=== PATIENT | female | born 1960 | race Caucasian/White ===

== ENCOUNTER 2018-03-19 16:16 | Inpatient (IN) | payer OTHER ==
[~2018-03-19] VITALS: Ht 152 cm; Wt 48.0 kg
--- NOTE | ~2018-03-19 | CON ---
[place], [place] REPORT OF CONSULTATION NAME: MARY MYERS UNIT #: [id number] ROOM: 407 DOCTOR: TREVON TORRES MD BIRTHDATE: [birth year] DOS: 03/20/2018 REASON FOR CONSULTATION: Palpitation and chest discomfort. HISTORY OF PRESENT ILLNESS: The patient is a 57-year-old woman who was seen on 03/20/2018 for evaluation of palpitations. She states that she has never had a history of heart disease or diabetes. She was known to have high blood pressure and was treated for this for several years until she found out that she had sleep apnea. She started using CPAP about 5 years ago, which states that her blood pressure normalized shortly after that. She was living in [place], but recently moved to the [facility] to help care for her aging mother. She states that since she has moved to the local area, she has had an uncomfortable awareness of her heartbeat. She states that it often beats quickly. She wears a Fitbit and states that her resting pulse can be about 90 and with even a little bit of activity can go up in the low 100s. She denies actual chest pain, but states that it is uncomfortable when she is aware of her heart. Yesterday, she was doing an intake evaluation at the local [facility] in [place]. She told the staff there that she was having palpitations and was sent to the emergency room for evaluation and admission. The patient denies any previous history of heart disease, heart murmur, rheumatic fever, scarlet fever, diabetes mellitus, heart attack or stroke. PAST HISTORY: Includes, 1. Hypertension, which was treated for 5 years. 2. Obstructive sleep apnea. The patient has been on CPAP for the last 5 years and notes that her blood pressure normalized after she began using CPAP. 3. Long-term tobacco abuse. The patient is in the process of quitting. She is not using any drugs to assist this. 4. History of hysterectomy. FAMILY HISTORY: Her father had a heart attack in his 60s and several other men in the family have had heart attacks in that age group. Mother is alive with hypertension and arrhythmias. MEDICATIONS: The patient states that her only prescription medication is trazodone 50 mg at bedtime. She has been on this for several years without any recent changes. She denies use of [id number] supplements, stimulants, decongestants, etc. ALLERGIES: She has no known drug allergies. REVIEW OF SYSTEMS: The patient denies diplopia or loss of vision. She denies lightheadedness or syncope. She denies any focal weakness. She denies fevers, chills, sweats or recent weight change. She denies orthopnea or PND. She denies nausea or vomiting. She denies any change in bowel or bladder habits. She denies any hemoptysis or hematemesis. She denies any blood in her stools or urine. She denies peripheral edema or skin rashes. She denies heat or cold [place], [place] REPORT OF CONSULTATION NAME: MARY MYERS UNIT #: [id number] ROOM: 407 DOCTOR: TREVON TORRES MD BIRTHDATE: [birth year] intolerance. She denies polyuria or polydipsia. The remainder of the review of systems is negative except as noted above. SOCIAL HISTORY: The patient recently moved to the local area from [place]. She is attempting to quit smoking. She does not consume any alcohol or illicit drugs and denies the use of diet pills, decongestant sinus medications, etc. PHYSICAL EXAMINATION: GENERAL: The patient is a slender white female who looks younger than her stated age. VITAL SIGNS: Pulse is 78 and regular, blood pressure is 112/63. She is afebrile. HEENT: Normocephalic, atraumatic. Extraocular muscles are intact. Sclerae are clear. Pupils are equal, round and react to light. The oral mucosa is moist. Tongue is midline. NECK: Supple. She has no jugular distention. Carotids are full. I heard no bruits. She had no neck or supraclavicular masses and no thyromegaly. LUNGS: Respirations are unlabored. Her chest is clear to auscultation and percussion. She has no presacral edema or chest wall tenderness. HEART: Has a regular rhythm. She has a soft fourth heart sound, but no third heart sound or murmur. The PMI is not displaced. There is no precordial heave, lift or thrill. ABDOMEN: Soft and normally active without masses, organomegaly or bruits. EXTREMITIES: Showed no clubbing, cyanosis or edema. Peripheral pulses are easily palpated in the feet. She has no cords or Homans sign. There are no scars or skin rashes obvious. I reviewed her electrocardiogram, which showed sinus rhythm at a rate of 73. The tracing was entirely normal. I also reviewed pvc monitor strips from the last 24 hours and they show normal findings without tachy or bradyarrhythmias or pauses. Chest x-ray showed a normal cardiac silhouette. There was no evidence for heart failure. LABORATORY DATA: Hemoglobin is 13, hematocrit 39.5. There is 6400 white cells and 236,000 platelets. INR is 0.9, sodium 142, potassium 3.9, chloride 106, CO2 27, BUN 19, creatinine 0.8. Sugar was 128, but prior to that was 95. Troponin was negative times 3. Total cholesterol 207, triglycerides 230, LDL 106, HDL 55. TSH 0.780. IMPRESSION: Increased cardiac awareness with possible tachycardia. PLAN: Thus far, the patient shows no signs of an acute coronary ischemic problem or significant arrhythmias in the hospital. She appears to be at low risk for cardiac events in the foreseeable future. I think therefore that the remainder of her evaluation can occur as an outpatient. I told her to make sure that she avoids excessive caffeine, and that she does not consume decongestant sinus medications, etc. Also, I encouraged her to remain adequately hydrated. I applauded her efforts to stop smoking. I would like her to have an [place], [place] REPORT OF CONSULTATION NAME: MARY MYERS UNIT #: [id number] ROOM: 407 DOCTOR: TREVON TORRES MD BIRTHDATE: [birth year] echocardiogram as an outpatient as well as a 48-hour Holter monitor as an outpatient. If these are normal, then no other cardiac workup would be indicated at this time. I thank the hospitalist physicians for asking our advice regarding her care. TREVON TORRES MD CM:CONSTR:REPORT OF CONSULTATION [id number] 03/25/18 0800 interface
[2018-03-19 16:25] VITALS: BP 124/70
[2018-03-19] MEDS ORDERED: TRAZODONE50 MG PO (16:28)
[2018-03-19 16:33] LABS: BASO % 0.6 % (0.0-1.0); EOS # 0.3 10*3/uL (0.0-0.4); EOS % 3.8 % (1.0-4.0); HEMATOCRIT 40.9 % (37.0-47.0); HEMOGLOBIN 13.5 g/dl (12.0-16.0); LYMPH # 3.5 10*3/uL (1.3-4.4); LYMPH % 49.6 % (27.0-41.0); MEAN CELL VOLUME 92.1 fl (81.0-99.0); MEAN CORPUSCULAR HGB 30.4 pg (27.0-31.0); MEAN PLATELET VOLUME 8.8 fl (9.6-12.3); MONO # 0.6 10*3/uL (0.1-1.0); MONO % 8.6 % (3.0-9.0); NEUT # 2.6 10*3/uL (2.3-7.9); NEUT % 37.1 % (47.0-73.0); PLATELET COUNT AUTOMATED 221 10*3/uL (130-400); RED BLOOD COUNT 4.44 10*6/uL (4.10-5.10); RED CELL DISTRI WIDTH 13.2 % (0-14.5); WHITE BLOOD COUNT 7.1 10*3/uL (4.8-10.8)
[2018-03-19 16:42] LABS: ACT PARTIAL THROMBO TIME 22.6 SECONDS (20.8-31.5); INTERNATIONAL NORM RATIO 0.9 (2.0-3.5)
[2018-03-19 16:50] LABS: ALKALINE PHOSPHATASE 86 U/L (45-117); BUN 19 mg/dl (7-24); CHLORIDE 98 mmol/L (98-107); POTASSIUM 3.8 mmol/L (3.5-5.1); SGOT/AST 15 IU/L (3-35); SGPT/ALT 24 U/L (12-78); SODIUM 138 mmol/L (136-145)
[2018-03-19 16:57] LABS: TROPONIN I < 0.015 ng/ml (<0.045)
[2018-03-19 17:04] VITALS: BP 124/63
[2018-03-19 17:50] VITALS: BP 98/66
[2018-03-19 20:00] VITALS: BP 100/62
[2018-03-20] VITALS: BP 100/55
[2018-03-20 06:29] LABS: BASO # 0.1 10*3/uL (0.0-0.1); BASO % 1.1 % (0.0-1.0); EOS # 0.4 10*3/uL (0.0-0.4); EOS % 5.4 % (1.0-4.0); HEMATOCRIT 39.5 % (37.0-47.0); LYMPH # 2.8 10*3/uL (1.3-4.4); LYMPH % 42.9 % (27.0-41.0); MEAN CELL VOLUME 92.1 fl (81.0-99.0); MEAN CORPUSCULAR HGB 30.3 pg (27.0-31.0); MEAN CORPUSCULAR HGB CONC 32.9 g/dl (33.0-37.0); MEAN PLATELET VOLUME 9.4 fl (9.6-12.3); MONO # 0.6 10*3/uL (0.1-1.0); MONO % 9.8 % (3.0-9.0); NEUT # 2.6 10*3/uL (2.3-7.9); NEUT % 40.6 % (47.0-73.0); PLATELET COUNT AUTOMATED 236 10*3/uL (130-400); RED BLOOD COUNT 4.29 10*6/uL (4.10-5.10); RED CELL DISTRI WIDTH 13.2 % (0-14.5); WHITE BLOOD COUNT 6.4 10*3/uL (4.8-10.8)
[2018-03-20 06:41] LABS: ACT PARTIAL THROMBO TIME 22.7 SECONDS (20.8-31.5); INTERNATIONAL NORM RATIO 0.9 (2.0-3.5)
[2018-03-20 06:45] LABS: BUN 19 mg/dl (7-24); CHLORIDE 106 mmol/L (98-107); CHOLESTEROL 207 mg/dL (<200); HDL CHOLESTEROL 55 mg/dl (40-60); LDL CHOLESTEROL 106 mg/dL (9-159); PHOSPHOROUS 3.5 mg/dL (2.5-4.9); POTASSIUM 3.9 mmol/L (3.5-5.1); SODIUM 142 mmol/L (136-145); TRIGLYCERIDES 230 mg/dl (<150); VLDL CHOLESTEROL 46 mg/dL (6-40)
[2018-03-20 07:54] LABS: VITAMIN D, 25-HYDROXY 48.9 ng/mL (30-100)
[2018-03-20 08:00] VITALS: BP 116/61
[2018-03-20 12:00] VITALS: BP 112/63
== END 2018-03-20 17:10 | disposition home or self-care (01) | DRG 313 ==
LOC: ED 16:16 → EDHOLD 17:16 → 4E 17:37
PROVIDERS: Internal Medicine; Nurse Practitioner Family
DX: R07.89 Other chest pain (principal); E83.41 Hypermagnesemia; R00.2 Palpitations; I10 Essential (primary) hypertension; G47.33 Obstructive sleep apnea (adult) (pediatric); R00.0 Tachycardia, unspecified; R51 Headache; R42 Dizziness and giddiness; Z72.0 Tobacco use; Z79.899 Other long term (current) drug therapy; Z90.710 Acquired absence of both cervix and uterus; Z82.49 Family history of ischemic heart disease and other diseases of the circulatory system; Z71.6 Tobacco abuse counseling

== ENCOUNTER → 2020-12-24 | Outpatient (CLI) | payer OTHER ==
[~2020-12-24] MED LIST: TRAZODONE50 MG PO
== END | disposition home or self-care (01) ==
LOC: MAMMO 14:00
PROVIDERS: ATTEND Nurse Practitioner Family
DX: Z12.31 Encounter for screening mammogram for malignant neoplasm of breast (principal)

== ENCOUNTER → 2022-01-14 | Outpatient (CLI) | payer OTHER | END | disposition home or self-care (01) | LOC: MAMMO 14:52 | PROVIDERS: ATTEND Nurse Practitioner Family | DX: Z12.31 Encounter for screening mammogram for malignant neoplasm of breast (principal) ==

== ENCOUNTER → 2025-02-13 | Outpatient (CLI) | payer OTHER | END | disposition home or self-care (01) | LOC: MAMMO 11:00 | PROVIDERS: ATTEND Internal Medicine | DX: Z12.31 Encounter for screening mammogram for malignant neoplasm of breast (principal); R92.323 Mammographic fibroglandular density, bilateral breasts ==